=== PATIENT | male | born 1945 | race Caucasian/White ===

== ENCOUNTER 2016-08-20 07:32 | Day surgery (SDC) | payer MEDICARE, BC ==
[2016-08-19 09:41] VITALS: BMI 41.5
[~2016-08-20 07:32] MED LIST: LACTATED RINGERS 1,000 ML IV SCH
[2016-08-20 07:55] VITALS: TEMP 97.3
[2016-08-20] MEDS ORDERED: PROPOFOL 10 MG/ML 20 ML VIAL IV ONE (08:09)
[2016-08-20 08:12] LABS: Glucose,Whole Blood 116 mg/dL (75-99)
--- NOTE | 2016-08-20 08:20 | P.PCN ---
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 He had a liver biopsy done that showed adenocarcinoma and a colonoscopy year ago was negative. He scheduled for an upper endoscopy to evaluate for upper GI source of malignancy. Last colonoscopy about a year ago was normal. PROCEDURE PERFORMED: Esophagogastroduodenoscopy. PREOPERATIVE DIAGNOSIS: Metastatic adenocarcinoma of possible upper GI in origin. IV sedation per anesthesia. PROCEDURE: After informed consent was obtained, the patient was brought into the endoscopy unit. IV conscious sedation was administered by Anesthesia under continuous monitoring. Initially the Olympus GIF-140 video endoscope was inserted into the mouth. Esophagus intubated without any difficulty. It was gradually advanced into the stomach and duodenum and carefully examined. The bulb and the second part of the duodenum appeared normal. The scope at this time was withdrawn to the stomach, adequately insufflated with air, and upon careful examination, mucosa of the antrum, had mild diffuse gastritis, body, cardia and the fundus appeared normal. The scope was then withdrawn into the esophagus. The GE junction was located at 39 cm from the incisors. The esophagus appeared normal. There were no erosions or ulcerations seen and the patient tolerated the procedure well. IMPRESSION: 1. Mild diffuse gastritis. 2. No evidence of upper GI malignancy. RECOMMENDATIONS: The findings of this examination were discussed with the patient as well as his family. He was advised to follow with Dr Griselda villalta
[2016-08-20 08:22] VITALS: RESP 18
[2016-08-20 08:51] VITALS: BP 139/82; PULSE 71
[2016-08-20 09:05] LABS: Glucose,Whole Blood 114 mg/dL (75-99)
== END 2016-08-20 09:08 | disposition home or self-care (01) ==
LOC: ORWHC2ENDO 07:32
PROVIDERS: ATTEND Internal Medicine Gastroenterology
DX: C79.9 Secondary malignant neoplasm of unspecified site (principal); C22.9 Malignant neoplasm of liver, not specified as primary or secondary; K29.70 Gastritis, unspecified, without bleeding; K21.9 Gastro-esophageal reflux disease without esophagitis; I10 Essential (primary) hypertension; J45.909 Unspecified asthma, uncomplicated; J44.9 Chronic obstructive pulmonary disease, unspecified; G47.33 Obstructive sleep apnea (adult) (pediatric); E11.40 Type 2 diabetes mellitus with diabetic neuropathy, unspecified; F41.9 Anxiety disorder, unspecified; F32.9 Major depressive disorder, single episode, unspecified; R25.1 Tremor, unspecified; M19.90 Unspecified osteoarthritis, unspecified site; Z79.84 Long term (current) use of oral hypoglycemic drugs; Z79.52 Long term (current) use of systemic steroids; Z79.82 Long term (current) use of aspirin; Z79.899 Other long term (current) drug therapy; Z87.891 Personal history of nicotine dependence
CPT/HCPCS: 43235; J2704